=== PATIENT | female | born 1940 | race Caucasian/White ===

== ENCOUNTER 2019-05-31 17:03 | Emergency (ER) | payer MEDICARE ==
[~2019-05-31] VITALS: Ht 170.2 cm; Wt 51.3 kg
[~2019-05-31 17:03] MED LIST: ALEN70 PO; Aspirin EC81 MG PO; BIOTENE1000 ML PO; CHOL10002; DIPH50 PO; Multiple Vitam1 EAC1 PO; PROP30DR BOTHEYES; SUPER CALCIUM1 EACH PO; VITAMIN D32000 UNIT PO
== END 2019-05-31 18:33 | disposition home or self-care (01) ==
LOC: ER 17:03
DX: S80.02XA Contusion of left knee, initial encounter (principal); Z85.3 Personal history of malignant neoplasm of breast; Z88.8 Allergy status to other drugs, medicaments and biological substances; Z91.013 Allergy to seafood; Z79.82 Long term (current) use of aspirin; Z79.899 Other long term (current) drug therapy; W01.0XXA Fall on same level from slipping, tripping and stumbling without subsequent striking against object, initial encounter
CPT/HCPCS: 73564; 99283-25

== ENCOUNTER 2019-06-03 10:12 | Emergency (ER) | payer MEDICARE ==
[~2019-06-03] VITALS: Ht 170.2 cm; Wt 51.3 kg
== END 2019-06-03 13:00 | disposition home or self-care (01) ==
LOC: ER 10:12
DX: S80.02XA Contusion of left knee, initial encounter (principal); Z85.3 Personal history of malignant neoplasm of breast; Z88.8 Allergy status to other drugs, medicaments and biological substances; Z91.013 Allergy to seafood; Z79.82 Long term (current) use of aspirin; Z79.899 Other long term (current) drug therapy; W19.XXXA Unspecified fall, initial encounter
CPT/HCPCS: 73700; 99283-25

== ENCOUNTER → 2022-10-26 | Outpatient (CLI) | payer MEDICARE ==
[2022-10-26 20:36] LABS: Ferritin, Serum 89 ng/mL (8-252)
[2022-10-26 21:14] LABS: Iron Serum 81 ug/dL (50-170); Percent Saturation 22.9 % (15.0-50.0); Thyroxine (T4) 7.1 ug/dL (4.8-13.9); Total Iron Binding Capacity 354 ug/dL (250-450)
[2022-10-26 21:51] LABS: Alanine Aminotransfer (ALT/SGP 20 U/L (12-78); Albumin/Globulin Ratio 1.6 (0.8-1.8); Alk Phos 74 U/L (50-136); Anion Gap 5 mmol/L (6-16); Aspartate Aminotrans (AST/SGOT 15 U/L (12-37); Bilirubin, Direct <0.1 mg/dL (0.0-0.3); Bilirubin, Indirect Unable to Calculate mg/dL (0.1-0.7); Bilirubin, Total 0.3 mg/dL (0.1-1.0); Blood Urea Nitrogen 22 mg/dL (8-24); Bun/Creatinine Ratio 28.5 (12.0-20.0); CO2, Blood 29 mmol/L (21-32); Calcium, Blood 9.3 mg/dL (8.5-10.1); Chloride, Blood 107 mmol/L (98-108); Creatinine, Blood 0.77 mg/dL (0.40-1.00); Globulin, Blood 2.5 g/dL (2.2-4.0); Glomerular Filtration Rate 77 (60-); Glucose, Blood 89 mg/dL (70-99); Potassium, Blood 4.4 mmol/L (3.5-5.5); Sodium, Blood 141 mmol/L (136-145); Total Protein, Blood 6.5 g/dL (6.4-8.2)
== END | disposition home or self-care (01) ==
LOC: LAB 11:00 → LAB SHORT 11:00
PROVIDERS: Internal Medicine Hematology & Oncology
DX: D64.9 Anemia, unspecified (principal); E53.8 Deficiency of other specified B group vitamins
CPT/HCPCS: 80053; 82248; 82607; 82728; 82746; 83540; 83550; 84436; 84443

== ENCOUNTER → 2022-11-23 | Outpatient (CLI) | payer MEDICARE | END | disposition home or self-care (01) | LOC: LAB SHORT 11:30 → LAB 11:30 | DX: Z08 Encounter for follow-up examination after completed treatment for malignant neoplasm (principal); Z85.3 Personal history of malignant neoplasm of breast | CPT/HCPCS: 86300 ==

== ENCOUNTER 2024-06-01 15:20 | Inpatient (IN) | payer MEDICARE ==
[~2024-06-01] VITALS: Ht 172.7 cm; Wt 60.3 kg
[~2024-06-01 15:20] MED LIST changes: +CEPH500 PO
[2024-06-01 15:58] LABS: BASOPHILS ABSOLUTE AUTO 0.03 K/mm3 (0.00-0.23); BASOPHILS PERCENT AUTO 0 % (0-2); EOSINOPHILS ABSOLUTE AUTO 0.06 K/mm3 (0.00-0.68); EOSINOPHILS PERCENT AUTO 1 % (0-6); Hematocrit 36.3 % (33.0-51.0); Hemoglobin 12.2 g/dL (11.5-16.0); IMMATURE GRAN ABSOLUTE AUTO 0.06 K/mm3 (0.00-0.10); IMMATURE GRAN PERCENT AUTO 1 % (0-1); LYMPHOCYTES PERCENT AUTO 8 % (21-46); MONOCYTES ABSOLUTE AUTO 0.96 K/mm3 (0.16-1.47); MONOCYTES PERCENT AUTO 9 % (4-13); Mean Corpuscular HGB 30.4 pg (26.0-34.0); Mean Corpuscular HGB Conc 33.6 g/dL (31.5-36.5); Mean Corpuscular Volume 91 fL (80-100); NEUTROPHILS ABSOLUTE AUTO 8.25 K/mm3 (1.96-9.15); NEUTROPHILS PERCENT AUTO 81 % (41-73); RDW Coefficient Variation 12.9 % (11.7-14.2); RDW Standard Deviation 42.7 fL (35.1-46.3); Red Blood Cell Count 4.01 M/mm3 (3.80-5.20); White Blood Cell Count 10.16 K/mm3 (4.00-11.30)
[2024-06-01 16:23] LABS: Albumin, Blood 3.4 g/dL (3.4-5.0); Albumin/Globulin Ratio 0.9 (0.8-1.8); Bilirubin, Total 0.7 mg/dL (0.1-1.0); Bun/Creatinine Ratio 29.5 (12.0-20.0); Calcium, Blood 8.7 mg/dL (8.5-10.1); Creatinine, Blood 0.75 mg/dL (0.40-1.00); Globulin, Blood 3.9 g/dL (2.2-4.0); Potassium, Blood 3.8 mmol/L (3.5-5.5); Total Protein, Blood 7.3 g/dL (6.4-8.2)
[2024-06-01 16:25] LABS: Source, Urine Fem Cath
[2024-06-01 16:27] LABS: Appearance, Urine Clear (Clear); Bilirubin, Urine Neg (Neg); Blood, Urine 1+ (Neg); Color, Urine Yellow (P-Yellow); Glucose Qualitative, Urine Neg (Neg); Ketones, Urine 2+ (Neg); Leukocyte Esterase, Urine Neg (Neg); Nitrite, Urine Neg (Neg); Protein, Urine 1+ (Neg); Urobilinogen, Urine 1+ (Normal)
[2024-06-01] MEDS ORDERED: CARBIDOPA-LEVO1 EA15 PO (16:29)
[2024-06-01 16:30] LABS: Mean Platelet Volume 9.4 fL (9.1-12.4); Platelet Count 283 K/mm3 (150-400)
[2024-06-01] MEDS ORDERED: ACET325 PO (16:30)
[2024-06-01] MEDS ORDERED: CITALOPRAM HBR10 MG PO (16:31)
[2024-06-01] MEDS ORDERED: LOPE2C PO (16:32)
[2024-06-01] MEDS ORDERED: MELATONIN 5 MG1 EACH PO (16:32)
[2024-06-01] MEDS ORDERED: IBUP200 PO (16:32)
[2024-06-01] MEDS ORDERED: MIRALAX17 GM PO (16:33)
[2024-06-01] MEDS ORDERED: SENNA LAXATIVE8.6 MG PO (16:33)
[2024-06-01] MEDS ORDERED: TRAZ50 PO (16:34)
[2024-06-01 16:36] LABS: Influenza A, PCR NEGATIVE (NEGATIVE); Influenza B, PCR NEGATIVE (NEGATIVE); Resp Syncytial Virus, PCR NEGATIVE (NEGATIVE)
[2024-06-01 16:38] LABS: Bacteria Many /hpf; Squamous Epithelial Cells Few /hpf (Few); White Blood Cells, Urine 0-2 /hpf (0-5)
[2024-06-01 16:39] LABS: Hyaline Casts 0-2 /lpf (0-2); Mucus Light (0-Heavy)
[2024-06-01 16:42] LABS: SARS-Cov-2 (COVID-19) PCR, MMC POSITIVE (NEGATIVE)
[2024-06-01] MEDS ORDERED: Melatonin 3 MG Tab PO PRN (18:55)
[2024-06-01] MEDS ORDERED: Albuterol 2.5 MG/3 ML VIAL INH PRN (18:55)
[2024-06-01] MEDS ORDERED: Guaifenesin/Dextromethorphan Syrup 5 ML UDC PO PRN (18:55)
[2024-06-01] MEDS ORDERED: Acetaminophen 325 MG TABLET PO PRN ×2 (18:55)
[2024-06-01] MEDS ORDERED: Ondansetron HCl 2 MG / ML 2ML Vial IV PRN (19:00)
[2024-06-01] MEDS ORDERED: CARBLEV250 SL (19:30)
[2024-06-01 19:33] LABS: Anti-Xa UFH, PHA Monitoring <0.10 IU/mL; International Normalized Ratio 1.09; Prothrombin Time Results 11.6 Sec (9.7-11.5)
[2024-06-01] MEDS ORDERED: Heparin Sodium,Porcine/0.5 NS 500 ML IV SCH (21:00)
[2024-06-01] MEDS ORDERED: Heparin Sodium 5000 Units/ML 1ML MDV IV ONE (21:00)
[2024-06-01] MEDS ORDERED: Dose Adjust by Pharmacy XX STA (21:00)
[2024-06-01 21:01] VITALS: BP 169/83
[2024-06-01] MEDS ORDERED: CefTRIAXone Sodium 1,000 MG in NS 100 ML IV SCH (21:51)
[2024-06-01] MEDS ORDERED: Loperamide HCl 2 MG Cap PO PRN (22:05)
[2024-06-01] MEDS ORDERED: TraZODone HCl 50 MG Tab PO SCH (22:35)
[2024-06-01] MEDS ORDERED: NS 250 ML IV PRN (22:35)
[2024-06-01] MEDS ORDERED: CefTRIAXone 1000 MG Vial ONE (22:41)
[2024-06-01] MEDS ORDERED: NS 100 ML IV ONE (22:41)
[2024-06-01] MEDS ORDERED: Levodopa/Carbidopa 100 / 25 MG Tab PO SCH (23:00)
[2024-06-02] MEDS ORDERED: Acetaminophen 325 MG TABLET PO PRN (02:25)
[2024-06-02 04:18] VITALS: BP 154/82
[2024-06-02 04:24] LABS: BASOPHILS ABSOLUTE AUTO 0.03 K/mm3 (0.00-0.23); BASOPHILS PERCENT AUTO 0 % (0-2); EOSINOPHILS ABSOLUTE AUTO 0.04 K/mm3 (0.00-0.68); EOSINOPHILS PERCENT AUTO 1 % (0-6); Hemoglobin 12.4 g/dL (11.5-16.0); IMMATURE GRAN ABSOLUTE AUTO 0.02 K/mm3 (0.00-0.10); IMMATURE GRAN PERCENT AUTO 0 % (0-1); LYMPHOCYTES ABSOLUTE AUTO 1.17 K/mm3 (0.84-5.20); LYMPHOCYTES PERCENT AUTO 14 % (21-46); MONOCYTES ABSOLUTE AUTO 0.75 K/mm3 (0.16-1.47); MONOCYTES PERCENT AUTO 9 % (4-13); Mean Corpuscular HGB 30.6 pg (26.0-34.0); Mean Corpuscular HGB Conc 33.5 g/dL (31.5-36.5); Mean Corpuscular Volume 91 fL (80-100); NEUTROPHILS ABSOLUTE AUTO 6.65 K/mm3 (1.96-9.15); NEUTROPHILS PERCENT AUTO 77 % (41-73); Platelet Count 269 K/mm3 (150-400); RDW Coefficient Variation 12.7 % (11.7-14.2); RDW Standard Deviation 42.4 fL (35.1-46.3); Red Blood Cell Count 4.05 M/mm3 (3.80-5.20); White Blood Cell Count 8.66 K/mm3 (4.00-11.30)
[2024-06-02 04:42] LABS: Magnesium, Blood 2.2 mg/dL (1.6-2.4)
[2024-06-02 04:44] LABS: Alanine Aminotransfer (ALT/SGP <6 U/L (12-78); Albumin, Blood 3.3 g/dL (3.4-5.0); Albumin/Globulin Ratio 0.8 (0.8-1.8); Alk Phos 95 U/L (50-136); Anion Gap 11 mmol/L (3-11); Aspartate Aminotrans (AST/SGOT 15 U/L (12-37); Bilirubin, Total 0.6 mg/dL (0.1-1.0); Blood Urea Nitrogen 12 mg/dL (8-24); Bun/Creatinine Ratio 16.9 (12.0-20.0); CO2, Blood 26 mmol/L (21-32); Calcium, Blood 8.7 mg/dL (8.5-10.1); Chloride, Blood 106 mmol/L (98-108); Creatinine, Blood 0.71 mg/dL (0.40-1.00); Globulin, Blood 3.9 g/dL (2.2-4.0); Glomerular Filtration Rate 85 (60-); Glucose, Blood 116 mg/dL (70-99); Potassium, Blood 3.5 mmol/L (3.5-5.5); Sodium, Blood 139 mmol/L (136-145); Total Protein, Blood 7.2 g/dL (6.4-8.2)
[2024-06-02] MEDS ORDERED: Dose Adjust by Pharmacy XX STA (04:54)
--- NOTE | 2024-06-02 05:39 | NUR ---
SHIFT SUMMARY NOC PT A/O X 3. CONFUSED AND FORGETFUL AT TIMES. PT HAS EARLY ONSET PARKINSONS ALZHEIMERS DEMENTIA. BP SLIGHTLY ELEVATED. ADMIT FROM ED WITH BILATERAL PE, UTI, AND COVID POSITIVE. PT IS RESIDENT AT [facility]. PT IS ON BEDREST DUE TO GENERALIZED WEAKNESS. IS ON HEPARIN DRIP 18 U/KG/HR @ 21.6 ML/HR FOR 60 KG. ON TELE SINUS RHYTHM IN 80'S. PT HAS SIGNIFICANT TREMORS IN BUE. HAS PUREWICK IN PLACE DUE TO WEAKNESS. PT IS AMBULATORY WITH CANE AND FWW AT BASELINE. ON CONTINOUS PULSE OXIMETRY WITH SPO2 >94% ON RA. PT HAS SKIN CANCER BIOPSY SITE ON LFA THAT HAS BAND AIN IN PLACE C/D/I. PT CURRENTLY RESTING WITH BED IN LOWEST POSITION, AND CALL LIGHT WITHIN REACH.
[2024-06-02 07:39] VITALS: BP 155/87
[2024-06-02] MEDS ORDERED: CefTRIAXone 1000 MG Vial ONE (07:43)
[2024-06-02] MEDS ORDERED: NS 100 ML IV ONE (07:43)
[2024-06-02] MEDS ORDERED: Polyethylene Glycol 3350 17 gm PO SCH (09:00)
[2024-06-02] MEDS ORDERED: Citalopram Hydrobromide 10 MG TAB PO SCH (09:00)
[2024-06-02] MEDS ORDERED: Apixaban 5 MG Tab PO SCH (12:00)
--- NOTE | 2024-06-02 14:50 | NUR ---
SHIFT SUMMARY PT SLEEPING, RESTING QUIETLY AT START OF SHIFT. PT IN ENHANCED ISO FOR COVID. IV HEPARIN INFUSING PER EMAR FOR P.E. PT PLEASANT AND CO-OP WITH CARE, BUT VERY WEAK. PER REPORT, PT LIVES AT [facility] D/T HX OF PARKINSONS AND ALZ DEMENTIA. DR PEARL TO TO SEE PT THIS AM. POSSIBLE D/C TODAY DEPENDING ON P/T EVAL. DR ZAPATA LATER TO WELL. NEW ORDERS PLACED TO D/C HEPARIN AND START PT ON ELIQUIS; GIVEN PER EMAR. IV ABX GIVEN PER EMAR. PT VERY WEAK AND UNABLE TO STAND WITH THERAPY. ECHO DONE IN JUST PRIOR TO LUN TIME; DR PEARL WAITING FOR RESULTS. PT'S SISTER TO TO VISIT FOR A FEW HOURS TODAY. PT RESTING QUIETLY AT THIS TIME. WAKES EASILY FOR CARE. MEDS TAKEN BETTER WHOLE IN APPLESAUCE. [facility] CALLED TO CK ON PT; UPDATE GIVEN. CALL LT IN REACH.
[2024-06-02 15:51] VITALS: BP 146/73
[2024-06-02] MEDS ORDERED: TraZODone HCl 50 MG Tab PO SCH (21:00)
[2024-06-02 21:04] VITALS: BP 145/115
[2024-06-03 04:03] VITALS: BP 132/77
[2024-06-03 05:55] LABS: BASOPHILS ABSOLUTE AUTO 0.03 K/mm3 (0.00-0.23); BASOPHILS PERCENT AUTO 0 % (0-2); EOSINOPHILS ABSOLUTE AUTO 0.06 K/mm3 (0.00-0.68); EOSINOPHILS PERCENT AUTO 1 % (0-6); Hematocrit 37.3 % (33.0-51.0); Hemoglobin 12.2 g/dL (11.5-16.0); IMMATURE GRAN ABSOLUTE AUTO 0.02 K/mm3 (0.00-0.10); IMMATURE GRAN PERCENT AUTO 0 % (0-1); LYMPHOCYTES ABSOLUTE AUTO 0.68 K/mm3 (0.84-5.20); LYMPHOCYTES PERCENT AUTO 9 % (21-46); MONOCYTES ABSOLUTE AUTO 0.65 K/mm3 (0.16-1.47); MONOCYTES PERCENT AUTO 9 % (4-13); Mean Corpuscular HGB 30.4 pg (26.0-34.0); Mean Corpuscular HGB Conc 32.7 g/dL (31.5-36.5); Mean Corpuscular Volume 93 fL (80-100); Mean Platelet Volume 9.2 fL (9.1-12.4); NEUTROPHILS ABSOLUTE AUTO 6.07 K/mm3 (1.96-9.15); NEUTROPHILS PERCENT AUTO 81 % (41-73); Platelet Count 295 K/mm3 (150-400); RDW Coefficient Variation 12.7 % (11.7-14.2); RDW Standard Deviation 43.8 fL (35.1-46.3); Red Blood Cell Count 4.01 M/mm3 (3.80-5.20); White Blood Cell Count 7.51 K/mm3 (4.00-11.30)
--- NOTE | 2024-06-03 05:58 | NUR ---
SHIFT SUMMARY: Pt admitted for P.E. and is a DNR. is alert and able to make needs known. Did note some confusion but was about to redirect. ADLs have been a mix of 1-2 depending on activity but did not get out of bed. On ISO for covid. Denies pain or discomfort when asked.
[2024-06-03 06:33] LABS: Bun/Creatinine Ratio 14.5 (12.0-20.0); Calcium, Blood 8.9 mg/dL (8.5-10.1); Creatinine, Blood 0.76 mg/dL (0.40-1.00)
[2024-06-03 07:29] VITALS: BP 162/83
--- NOTE | 2024-06-03 13:10 | NUR ---
SUPPORTIVE VISIT WITH PT AND HER SISTER. A/O TO SELF, FAMILY AND LOCATION. SHE DOES NOT KNOW WHY SHE IS IN THE HOSPITAL. "PEOPLE KEEP SAYING I'M SICK. BUT, I FEEL FINE." PT IS VERY TALKATIVE THIS MORNING. 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 SHE DERAILED MOST CONVERSATIONS WITH HER CURRENT AND PAST TEACHING EXPERIENCES. SHE IS VERY PROUD OF THE LEGACY SHE HAS BUILT. SAUL DOES NOT RECALL HER RETIRING FROM WORK. PT'S SISTER REPORTS PT RETIRED [employer] 10 YEARS AGO. WITH SAUL'S COVID SYMPTOMS RESOLVING, GOAL IS TO D/C TO SNF TO REGAIN STRENGTH. SHE LIVES AT [facility]. PRIOR TO THIS VISIT, PT WAS PROVIDING MAJORITY OF HER OWN CARES. SPEECH THERAPY TO CONSULT TODAY AND PT/OT TO WORK WITH PT AGIAN TODAY.
[2024-06-03 15:39] VITALS: BP 152/85
--- NOTE | 2024-06-03 18:16 | NUR ---
SHIFT SUMMARY: PT A/O X3. PLEASANT AND COOPERATIVE WITH CARE. THIS RN NOTICED PT COUGHING WHILE EATING AND SWALLOWING MEDICATIONS. SPOKE WITH DR. ZAPATA AND ORDERED ST EVAL. SPEECH IN ROOM TO SEE PT THIS AM. ORDERED MINCED AND MOIST DIET AND MEDS CRUSHED IN . BARIUM SWALLOW ALSO ORDERED FOR TOMORROW 06/04/24. PT WORKED WITH PT THIS SHIFT. PT ABLE TO STAND AT BEDSIDE AND UP IN CHAIR FOR MEALS. PT ACCEPTED TO [facility] FOR TOMORROW. CALL LIGHT IN REACH. BED IN LOWEST POSITION.
[2024-06-03 20:02] VITALS: BP 143/78
--- NOTE | 2024-06-04 03:58 | NUR ---
SHIFT SUMMARY PT IS VERY PLEASANT, A&O x3, AND COOPERATIVE WITH CARE. PT LAYING IN BED, HOB >45 DEGREES, USING NECK PILLOW. PT DENIES ANY PAIN. PUREWIC DURING THE NIGHT HRS, DRAINING TEA COLOR URINE. PT NOT ABLE TO STANDUP AT HS TO USE THE BEDSIDE COMMODE WITH 1-2 PERSON ASSIST, OR HOLD THE FWW FOR SUPPORT. PT REQUESTED BEDPAN. O2 CONTINUOUS PULSE OX>95% T/O THIS SHIFT. NO COUGH NOTED. LUNGS DIMINISHED T/O. AWAITING FOR BARIUM SWALLOW TEST TODAY. PT UNDERSTANDS D/C PLANS TO [facility]. BED ALARM FOR SAFETY. NO ACUTE EVENTS DURING THIS SHIFT. BED AT THE LOWEST POSITION, FLOATING COCCYX AND HEELS WITH PILLOWS. CALL LIGHT WITHIN REACH. FREQUENT CHECKS TO PT ROOM.
[2024-06-04 05:28] LABS: BASOPHILS ABSOLUTE AUTO 0.03 K/mm3 (0.00-0.23); BASOPHILS PERCENT AUTO 0 % (0-2); EOSINOPHILS ABSOLUTE AUTO 0.08 K/mm3 (0.00-0.68); EOSINOPHILS PERCENT AUTO 1 % (0-6); Hematocrit 38.6 % (33.0-51.0); IMMATURE GRAN ABSOLUTE AUTO 0.03 K/mm3 (0.00-0.10); IMMATURE GRAN PERCENT AUTO 0 % (0-1); LYMPHOCYTES ABSOLUTE AUTO 1.12 K/mm3 (0.84-5.20); LYMPHOCYTES PERCENT AUTO 13 % (21-46); MONOCYTES ABSOLUTE AUTO 0.85 K/mm3 (0.16-1.47); MONOCYTES PERCENT AUTO 10 % (4-13); Mean Corpuscular HGB 30.7 pg (26.0-34.0); Mean Corpuscular HGB Conc 33.7 g/dL (31.5-36.5); Mean Corpuscular Volume 91 fL (80-100); Mean Platelet Volume 9.4 fL (9.1-12.4); NEUTROPHILS ABSOLUTE AUTO 6.81 K/mm3 (1.96-9.15); NEUTROPHILS PERCENT AUTO 76 % (41-73); Platelet Count 316 K/mm3 (150-400); RDW Coefficient Variation 12.8 % (11.7-14.2); RDW Standard Deviation 42.3 fL (35.1-46.3); Red Blood Cell Count 4.23 M/mm3 (3.80-5.20); White Blood Cell Count 8.92 K/mm3 (4.00-11.30)
[2024-06-04 05:54] LABS: Bun/Creatinine Ratio 19.6 (12.0-20.0); Calcium, Blood 8.7 mg/dL (8.5-10.1); Creatinine, Blood 0.66 mg/dL (0.40-1.00); Potassium, Blood 3.9 mmol/L (3.5-5.5)
[2024-06-04 08:09] VITALS: BP 149/79
[2024-06-04] MEDS ORDERED: ELIQUIS5 M2 PO (10:29)
[2024-06-04] MEDS ORDERED: CEFD300 PO (10:30)
[2024-06-04 10:51] LABS: SARS-Cov-2 (COVID-19) PCR, MMC NEGATIVE (NEGATIVE)
[2024-06-04] MEDS ORDERED: VISBIOME 112.51 EACH PO (11:58)
--- NOTE | 2024-06-04 13:19 | NUR ---
GOALS OF CARE, SUPPORTIVE VISIT PROVIDER, SPEECH THERAPY AND PALLIATIVE CARE AT BEDSIDE TO REVIEW RESULTS AND IMAGES OF MODIFIED BARIUM SWALLOW STUDY. PT (SAUL), SISTER, [id number] IN ROOM. BROTHER IS ON SPEAKER PHONE. SAUL'S SWALLOW STUDY REVEALED GREAT RISK FOR ASPIRATION. SPEECH RECOMMENDS PUREE WITH THICK LIQUIDS AND MEDS CRUSHED IN APPLESAUCE. PT ENDORSES POOR APPETITE AND DIFFICULTY SWALLOWING. PT AND FAMILY WOULD LIKE TO PROCEED WITH SNF. CM NOTIFIED.
--- NOTE | 2024-06-04 15:16 | NUR ---
DISCHARGE ORDER PATIENT A/OX3 THIS SHIFT, SISTER AND [id number] AT BEDSIDE. SWALLOW STUDY COMPLETED THIS AM AND PATIENT DOWNGRADED TO PUREED DIET WITH NECTAR THICK FLUIDS, NO STRAWS, MEDS CONTINUE TO BE CRUSHED. COVID TEST CAME BACK NEGATIVE THIS AM. DISCHARGE ORDERS RECIEVED AND COMPLETED BY CHARGE NURSE AND MEDIA SALES REPRESENTATIVE. REPORT CALLED AND GIVEN TO GERMAN AT [facility]. PIVs AND OXIMETER REMOVED BY SHIP CLEANER. AWAITING TRANSPORTATION TO [facility], NO OTHER CONCERNS AT THIS TIME.
== END 2024-06-04 15:30 | DRG 177 ==
LOC: ER 15:20 → MEDS 15:21
PROVIDERS: Emergency Medicine; Physician Assistant; ADMIT Student in an Organized Health Care Education/Training Program
DX: U07.1 COVID-19 (principal); I26.99 Other pulmonary embolism without acute cor pulmonale; J96.01 Acute respiratory failure with hypoxia; N39.0 Urinary tract infection, site not specified; Z66 Do not resuscitate; G30.9 Alzheimer's disease, unspecified; G20.A1 Parkinson's disease without dyskinesia, without mention of fluctuations; G47.00 Insomnia, unspecified; R13.10 Dysphagia, unspecified; K59.00 Constipation, unspecified; R91.1 Solitary pulmonary nodule; F02.80 Dementia in other diseases classified elsewhere, unspecified severity, without behavioral disturbance, psychotic disturbance, mood disturbance, and anxiety; Z98.890 Other specified postprocedural states; Z85.3 Personal history of malignant neoplasm of breast; Z88.8 Allergy status to other drugs, medicaments and biological substances; Z91.013 Allergy to seafood; Z79.899 Other long term (current) drug therapy
CPT/HCPCS: 0241U; 36415; 71045; 71260; 74230; 80048; 80053; 81001; 83735; 83880; 84484; 85025; 85520; 85610; 85730; 87086; 92610; 92611; 93005; 93010; 93306; 94762; 96365; 96366; 96375; 96376; 97110; 97110-CQ; 97161; 97530; 97530-CQ; 99285-25; A9270; G0378; J0696; J1644; J7050; Q9967; U0002

== ENCOUNTER → 2024-07-17 | Outpatient (CLI) | payer MEDICARE ==
[~2024-07-17] MED LIST changes: +ACET325 PO; +CARBIDOPA-LEVO1 EA15 PO; +CARBLEV250 SL; +CEFD300 PO; +CITALOPRAM HBR10 MG PO; +ELIQUIS5 M2 PO; +IBUP200 PO; +LOPE2C PO; +MELATONIN 5 MG1 EACH PO; +MIRALAX17 GM PO; +SENNA LAXATIVE8.6 MG PO; +TRAZ50 PO; +VISBIOME 112.51 EACH PO
== END | disposition home or self-care (01) ==
LOC: LAB SHORT 14:48 → LAB 14:48
DX: L08.0 Pyoderma (principal)
CPT/HCPCS: 87070; 87077; 87147; 87186; 87205

== ENCOUNTER 2024-11-07 12:10 | Emergency (ER) | payer MEDICARE ==
[~2024-11-07] VITALS: Ht 172.7 cm; Wt 59.0 kg
[2024-11-07 14:06] VITALS: BP 159/83
== END 2024-11-07 14:35 | disposition home or self-care (01) ==
LOC: ER 12:10
DX: S09.90XA Unspecified injury of head, initial encounter (principal); W18.30XA Fall on same level, unspecified, initial encounter; Z79.01 Long term (current) use of anticoagulants; Z88.8 Allergy status to other drugs, medicaments and biological substances; Z91.013 Allergy to seafood
CPT/HCPCS: 70450; 72125; 99284-25

== ENCOUNTER → 2024-12-02 | Outpatient (CLI) | payer MEDICARE ==
[2024-12-02 15:26] LABS: Appearance, Urine Clear (Clear); Bilirubin, Urine Neg (Neg); Blood, Urine Neg (Neg); Color, Urine Yellow (P-Yellow); Glucose Qualitative, Urine Neg (Neg); Ketones, Urine Neg (Neg); Leukocyte Esterase, Urine Neg (Neg); Nitrite, Urine Neg (Neg); Protein, Urine Neg (Neg); Urobilinogen, Urine NORM (Normal); pH, Urine 6.5 (5.0-8.0)
== END | disposition home or self-care (01) ==
LOC: LAB SHORT 13:00 → LAB 13:00
PROVIDERS: Nurse Practitioner Family
DX: N39.0 Urinary tract infection, site not specified (principal)
CPT/HCPCS: 81003

== ENCOUNTER → 2025-02-16 | Outpatient (CLI) | payer MEDICARE | LOC: LAB 09:05 → LAB SHORT 09:05 | DX: N39.0 Urinary tract infection, site not specified (principal) ==

== ENCOUNTER 2025-06-16 20:27 | Emergency (ER) | payer MEDICARE ==
[~2025-06-16] VITALS: Ht 170.2 cm; Wt 54.0 kg
[2025-06-16 22:15] VITALS: BP 164/86
[2025-06-16] MEDS ORDERED: ONDA4ODT MM (22:46)
== END 2025-06-17 00:18 | disposition home or self-care (01) ==
LOC: ER 20:27
DX: S02.2XXA Fracture of nasal bones, initial encounter for closed fracture (principal); G20.A1 Parkinson's disease without dyskinesia, without mention of fluctuations; G30.9 Alzheimer's disease, unspecified; F02.80 Dementia in other diseases classified elsewhere, unspecified severity, without behavioral disturbance, psychotic disturbance, mood disturbance, and anxiety; Z23 Encounter for immunization; Z88.8 Allergy status to other drugs, medicaments and biological substances; Z91.013 Allergy to seafood; Z79.01 Long term (current) use of anticoagulants; Z79.899 Other long term (current) drug therapy; W18.09XA Striking against other object with subsequent fall, initial encounter
CPT/HCPCS: 70450; 72125; 90471; 90715; 99284-25; A9270

== ENCOUNTER → 2025-09-07 | Outpatient (CLI) | payer MEDICARE ==
[~2025-09-07] MED LIST changes: +ONDA4ODT MM
[2025-09-07 10:46] LABS: Source, Urine Clean Catch
[2025-09-07 13:06] LABS: Bilirubin, Urine Neg (Neg); Color, Urine Yellow (P-Yellow); Glucose Qualitative, Urine Neg (Neg); Ketones, Urine 1+ (Neg); Leukocyte Esterase, Urine 1+ (Neg); Protein, Urine 1+ (Neg); Specific Gravity, Urine 1.020 (1.003-1.022); Urobilinogen, Urine 2+ (Normal)
[2025-09-07 13:52] LABS: Red Blood Cells, Urine Not Seen /hpf (0-2)
== END ==
LOC: LAB 08:55 → LAB SHORT 08:55
PROVIDERS: Nurse Practitioner Family
DX: N39.0 Urinary tract infection, site not specified (principal)
CPT/HCPCS: 81001; 87077; 87086; 87186

== ENCOUNTER → 2025-09-28 | Outpatient (CLI) | payer MEDICARE ==
[2025-09-28 10:47] LABS: Source, Urine Clean Catch
[2025-09-28 11:42] LABS: Bilirubin, Urine Neg (Neg); Color, Urine Yellow (P-Yellow); Glucose Qualitative, Urine Neg (Neg); Ketones, Urine Neg (Neg); Leukocyte Esterase, Urine 1+ (Neg); Protein, Urine 1+ (Neg); Specific Gravity, Urine 1.025 (1.003-1.022); Urobilinogen, Urine 1+ (Normal)
[2025-09-28 11:48] LABS: Red Blood Cells, Urine Not Seen /hpf (0-2)
== END ==
LOC: LAB 10:45 → LAB SHORT 10:45
PROVIDERS: Nurse Practitioner Family
DX: N39.0 Urinary tract infection, site not specified (principal)
CPT/HCPCS: 81001; 87086